=== PATIENT | female | born 2000 | race African-American/Black ===

== ENCOUNTER 2021-11-22 14:36 | Emergency (ER) | payer OTHER ==
[~2021-11-22] VITALS: Ht 170.2 cm; Wt 75.0 kg
[2021-11-22 14:41] VITALS: BP 149/93
[2021-11-22 15:50] LABS: CLARITY URINE CLOUDY (CLEAR); COLOR URINE ORANGE (YELLOW); KETONES URINE 1+ (NEGATIVE); LEUKOCYTE ESTERASE URINE 1+ (NEGATIVE); NITRITE URINE NEGATIVE (NEGATIVE); OCCULT BLOOD URINE 3+ (NEGATIVE); PROTEIN URINE 1+ (NEGATIVE); SPECIFIC GRAVITY URINE 1.019 (1.005-1.030)
[2021-11-22 16:36] LABS: BASOPHILS % 0.5 % (0.0-2.0); EOSINOPHILS % 1.7 % (0.0-5.0); HEMATOCRIT. 34.3 % (36.0-48.0); HEMOGLOBIN. 11.4 g/dL (12.0-16.0); LYMPHOCYTES % 20.8 % (20.0-50.0); MEAN CORPUSCULAR HEMOGLOBIN 31.2 pg (28.0-32.0); MEAN CORPUSCULAR VOLUME 93.3 fL (81.0-99.0); MEAN PLATELET VOLUME 6.8 fl (7.4-10.4); MONOCYTES % 7.8 % (2.0-8.0); NEUTROPHILS % 69.2 % (40.0-76.0); PLATELET 251 x1000/uL (130-400); RED BLOOD CELL COUNT 3.67 mill/uL (4.2-5.4); RED CELL DISTRIBUTION WIDTH 11.9 % (11.6-14.6)
[2021-11-22 16:46] LABS: CHLORIDE 106 mEq/L (98-107)
[2021-11-22 17:10] LABS: B-HCG QUANTITATIVE 111039 mIU/mL (<3)
== END 2021-11-22 17:47 | disposition home or self-care (01) ==
LOC: ER 14:36
DX: O20.9 Hemorrhage in early pregnancy, unspecified (principal); O12.11 Gestational proteinuria, first trimester; Z3A.08 8 weeks gestation of pregnancy
CPT/HCPCS: 36415; 76801; 80053; 81003; 84702; 85025; 86850; 86900; 99284

== ENCOUNTER 2023-01-10 19:22 | Emergency (ER) | payer OTHER ==
[~2023-01-10] VITALS: Ht 167.6 cm; Wt 78.0 kg
[2023-01-10 19:29] VITALS: O2SAT 99
[2023-01-10 19:45] VITALS: BP 142/88; PULSE 94; RESP 16; TEMP 98.2
[2023-01-10] MEDS ORDERED: ACETAMINOPHEN 325MG TABLET PO ONE (19:45)
[2023-01-10] MEDS ORDERED: KETOROLAC 60MG/2ML VIAL IM ONE (19:45)
== END 2023-01-10 20:55 | disposition left against medical advice (07) ==
LOC: ER 19:22
DX: M25.561 Pain in right knee (principal); I10 Essential (primary) hypertension
CPT/HCPCS: 81025; 99283

== ENCOUNTER 2023-11-24 09:48 | Emergency (ER) | payer OTHER ==
[~2023-11-24] VITALS: Ht 177.8 cm; Wt 82.0 kg
[2023-11-24 09:55] VITALS: BP 132/77; PULSE 92; RESP 18; O2SAT 99
[2023-11-24] MEDS ORDERED: NAPR220C61 MT (11:20)
[2023-11-24 11:25] VITALS: TEMP 98.6
[2023-11-24] MEDS: ACETAMINOPHEN 325MG TABLET PO ONE (11:25)
== END 2023-11-24 12:09 | disposition home or self-care (01) ==
LOC: ER 09:48
DX: S89.91XA Unspecified injury of right lower leg, initial encounter (principal); I10 Essential (primary) hypertension; G89.11 Acute pain due to trauma; X58.XXXA Exposure to other specified factors, initial encounter; Y93.89 Activity, other specified; Y92.89 Other specified places as the place of occurrence of the external cause; Y99.8 Other external cause status
CPT/HCPCS: 29505; 73564; 99283